=== PATIENT | female | born 1995 | race Caucasian/White ===

== ENCOUNTER 2019-04-08 23:01 | Inpatient (IN) | payer OTHER ==
[2019-04-08] MEDS ORDERED: Sodium Chloride 0.9% 2.5 ML Syringe FLUSH PRN (23:24)
[2019-04-08] MEDS ORDERED: Sodium Chloride 0.9% 10 ML SDV IV PRN (23:24)
[2019-04-08] MEDS ORDERED: Sodium Chloride 0.9% 10 ML Syringe FLUSH PRN (23:24)
[2019-04-08] MEDS ORDERED: Citric Acid/Sodium Citrate Solution 30 ML Cup PO ONE (23:24)
[2019-04-08] MEDS ORDERED: ceFAZolin 2 GM in Premix Bag 1 BAG IV ONE (23:24)
[2019-04-08] MEDS ORDERED: Oxytocin/0.9 % Sodium Chloride 30 UNIT/500 ML BAG IV SCH (23:30)
[2019-04-08] MEDS: Lactated Ringers 1,000 ML IV SCH (23:38)
--- NOTE | 2019-04-09 00:04 | PCM.PREANE ---
Preanesthetic Assessment - Procedure Proposed Procedure: Version possible . - Anesthesia/Transfusion/Family Hx Anesthesia History: Prior Anesthesia Without Reaction Family History of Anesthesia Reaction: No - Review of Systems General: No Symptoms Pulmonary: No Symptoms Cardiovascular: No Symptoms Gastrointestinal: Other (Some nausea at present) Neurological: No Symptoms, Other (Hx Fibro) Other: Reports: None, Depression - Physical Assessment NPO Status Date: 04/09/19 NPO Status Time: 00:05 Height: 1.68 m Weight: 87.997 kg ASA Class: 2E Mental Status: Alert & Oriented x3 Airway Class: Mallampati = 2 Dentition: Reports: Normal Dentition Thyro-Mental Finger Breadths: 3 Mouth Opening Finger Breadths: 3 ROM/Head Extension: Full Lungs: Clear to Auscultation Cardiovascular: Regular Rate - Lab Values: Laboratory Last Values WBC 9.35 K/uL (4.0-11.0) 04/08/19 23:38 RBC 4.40 M/uL (4.30-5.90) 04/08/19 23:38 Hgb 12.5 g/dL (12.0-16.0) 04/08/19 23:38 Hct 37.3 % (36.0-46.0) 04/08/19 23:38 MCV 84.8 fL (80.0-98.0) 04/08/19 23:38 MCH 28.4 pg (27.0-32.0) 04/08/19 23:38 MCHC 33.5 g/dL (31.0-37.0) 04/08/19 23:38 RDW Std Deviation 42.8 fl (28.0-62.0) 04/08/19 23:38 RDW Coeff of Javier 14 % (11.0-15.0) 04/08/19 23:38 Plt Count 219 K/uL (150-400) 04/08/19 23:38 MPV 9.60 fL (7.40-12.00) 04/08/19 23:38 Nucleated RBC % 0.0 /100WBC 04/08/19 23:38 Nucleated RBCs # 0 K/uL 04/08/19 23:38 - Allergies Allergies/Adverse Reactions: Allergies Allergy/AdvReac Type Severity Reaction Status Date / Time No Known Allergies Allergy Verified 04/08/19 23:22 - Blood Blood Available: No - Anesthesia Plan Pre-Op Medication Ordered: None - Acknowledgements Anesthesia Type Planned: Spinal Pt an Appropriate Candidate for the Planned Anesthesia: Yes Alternatives and Risks of Anesthesia Discussed w Pt/Guardian: Yes Pt/Guardian Understands and Agrees with Anesthesia Plan: Yes Additional Comments: Hx noted. Discussed. ? answered. Wishes to proceed. PreAnesthesia Questionnaire Other Gastrointestinal History: H. Pylori - HOME MEDS Home Medications: Home Meds Pnv No.95/Ferrous Fum/Folic AC [ Tablet] 1 tab PO DAILY 04/08/19 [ History] Sertraline [Zoloft] 1 tab PO DAILY 04/08/19 [History] - CURRENT (IN HOUSE) MEDS Current Meds: Current Medications Lactated Ringer's (Ringers, Lactated) 1,000 mls @ 500 mls/hr IV BOLUS VISHAL Oxytocin/Sodium Chloride (Oxytocin 30 Unit/500 Ml-Ns) 30 unit in 500 mls @ 250 mls/hr IV TITRATE VISHAL Sodium Chloride (Saline Flush) 10 ml FLUSH ASDIRECTED PRN PRN Reason: Keep Vein Open Sodium Chloride (Saline Flush) 2.5 ml FLUSH ASDIRECTED PRN PRN Reason: Keep Vein Open Sodium Chloride (Normal Saline) 10 ml IV ASDIRECTED PRN PRN Reason: IV Use Discontinued Medications Citric Acid/Sodium Citrate (Bicitra Solution) 30 ml PO ONETIME ONE Stop: 04/08/19 23:25 Cefazolin Sodium/Dextrose 2 gm (/ Premix) 50 mls @ 100 mls/hr IV ONETIME ONE Stop: 04/08/19 23:53
[2019-04-09] MEDS ORDERED: Ondansetron 4 MG/2 ML SDV ONE (00:13)
[2019-04-09] MEDS ORDERED: ePHEDrine 50 MG/ML SDV ONE ×2 (00:13→00:24)
[2019-04-09] MEDS ORDERED: Sodium Chloride 0.9% 40 ML ONE (00:13)
[2019-04-09] MEDS ORDERED: ceFAZolin 1 GM Vial ONE (00:13)
[2019-04-09] MEDS ORDERED: Phenylephrine/Normal Saline 100 MCG/ML 10 ML Syringe ONE (00:13)
[2019-04-09] MEDS: Lactated Ringers 1,000 ML IV SCH (00:16)
[2019-04-09] MEDS ORDERED: Morphine PF 10 MG/10 ML SDV ONE (00:16)
[2019-04-09] MEDS ORDERED: Oxytocin 10 Units/1 ML SDV ONE (00:44)
[2019-04-09] MEDS ORDERED: fentaNYL 100 MCG/2 ML SDV IVPUSH PRN (01:08)
[2019-04-09] MEDS ORDERED: Nalbuphine 10 MG/1 ML Vial IVPUSH PRN (01:08)
[2019-04-09] MEDS ORDERED: Acetaminophen/HYDROcodone 325-5 MG Tab PO PRN (01:08)
[2019-04-09] MEDS ORDERED: Misoprostol 200 MCG Tab RECTAL PRN (02:10)
[2019-04-09] MEDS ORDERED: diphenhydrAMINE 50 MG/ML SDV IVPUSH PRN (02:10)
[2019-04-09] MEDS ORDERED: Acetaminophen/oxyCODONE 325-5 MG Tab PO PRN (02:10)
[2019-04-09] MEDS ORDERED: Lanolin 100% Cream 7 GM Tube TOP PRN (02:10)
[2019-04-09] MEDS ORDERED: Oxytocin 10 Units/1 ML SDV IM PRN (02:10)
[2019-04-09] MEDS ORDERED: Bisacodyl 10 MG Supp RECTAL PRN (02:10)
[2019-04-09] MEDS ORDERED: Sodium Chloride 0.9% 10 ML Syringe FLUSH PRN (02:10)
[2019-04-09] MEDS ORDERED: Tranexamic Acid 1,000 MG in Sodium Chloride 0.9% 100 ML IV PRN (02:10)
[2019-04-09] MEDS ORDERED: Sodium Chloride 0.9% 2.5 ML Syringe FLUSH PRN (02:10)
[2019-04-09] MEDS ORDERED: Ondansetron 4 MG/2 ML SDV IVPUSH PRN (02:10)
[2019-04-09] MEDS ORDERED: Methylergonovine 0.2 MG/1 ML Amp IM PRN (02:10)
[2019-04-09] MEDS ORDERED: Lactated Ringers 1,000 ML IV SCH (02:15)
--- NOTE | 2019-04-09 02:30 | PCM.POSTAN ---
POST ANESTHESIA ASSESSMENT - MENTAL STATUS Mental Status: Alert - VITAL SIGNS Vital Signs: Last Vital Signs Temp 36.1 C 04/09/19 01:57 Pulse 66 04/09/19 02:20 Resp 8 L 04/09/19 02:20 BP 102/69 04/09/19 02:20 Pulse Ox 98 04/09/19 02:20 - RESPIRATORY Respiratory Status: Respiratory Rate WNL - CARDIOVASCULAR CV Status: Pulse Rate WNL - GASTROINTESTINAL GI Status: No Symptoms Free Text/Narrative:: Nausea from OR resolved. - PAIN Pain Score: 0 (Spinal regressing) - POST OP HYDRATION Hydration Status: Adequate & Stable (Doing well. Will move to phase 2.)
[2019-04-09] MEDS: Ketorolac 30 MG/ML SDV IVPUSH SCH ×4 (02:33→21:15)
--- NOTE | 2019-04-09 05:38 | OR ---
SURGEON: Silvio Cooper MD DATE OF PROCEDURE: 04/09/2019 INDICATION: A 23-year-old, -0-1-1 female, at 37 weeks and 3 days, presenting with spontaneous labor. The patient had regular contractions and progressed from 2cm in the office to 5 cm. Baby was in breech presentation and was scheduled for external cephalic version. She desired a trial of external cephalic version before proceeding with primary section. Complete breech presentation was confirmed by bedside ultrasound. External cephalic version was attempted at bedside and was unsuccessful. heart rate was category 1 tracing. After discussion with the patient, she was agreeable to section. Risks of procedure were discussed with the patient. Questions answered and consent was signed. PREOPERATIVE DIAGNOSES: 1. Wheeler intrauterine at 37 weeks and 1 day. 2. Complete breech presentation. POSTOPERATIVE DIAGNOSES: 1. Wheeler intrauterine at 37 weeks and 1 day. 2. Complete breech presentation. PROCEDURE: Low-transverse section. ESTIMATED BLOOD LOSS: 800 mL. ANESTHESIA: Spinal. ANESTHESIOLOGIST: Ming Patel M.D. FINDINGS: Wheeler intrauterine in complete breech presentation. Viable male fetus. Weight of 7lbs 15oz. of 8 and 9. Normal appearing uterus, bilateral fallopian tubes and ovaries. DESCRIPTION OF PROCEDURE: The patient was brought to the operating room. She received 2 g of Ancef and pneumatic stockings. Spinal anesthesia was applied. Odom was placed. The abdomen was prepped with chlorhexidine in sterile fashion. She was draped and tested for anesthesia, the spinal was adequate. A Pfannenstiel incision was made with a scalpel and dissected down to fascia. Sites of bleeding were cauterized. The fascia was cleared of subcutaneous tissue. The fascia was then incised in the midline and extended laterally with curved Apodaca scissors. Vidal clamps were placed on the superior fascial edge. The rectus muscles were then from the fascia by blunt dissection and using Apodaca scissors. The rectus muscle was inferiorly in similar fashion. The peritoneum was identified and an opening was made bluntly, then stretched. The [place]on retractor was placed in the peritoneal cavity. The bladder was noted to be far away from the site of incision. The uterus was incised transversely at the lower uterine segment using scalpel and extended bluntly. Clear amniotic fluid was noted. The was noted to be in complete breech presentation. The hips were grasped and turned sacrum anterior and delivered through the hysterotomy followed by the legs. The right arm was delivered by rotating the right shoulder anteriorly and sweeping the arm towards the body. The left arm and shoulder were delivered in similar fashion. The head was then delivered with flexion of the chin. The nose and mouth were suctioned. The umbilical cord was clamped and cut after 30 seconds and no longer pulsating. The was pink, crying vigorously and moving all extremities. The infant was handed over to nursery staff and chain maker loom control. The cord gases were obtained. The placenta was delivered manually. The uterus was cleared of any remaining membranes with a clean lap. Allis clamps were used to grasp the angles and lower edges of the incision. The uterine incision was closed using 0 Monocryl in running nonlocking fashion. Small sites of bleeding were noted at the midline. [id number] sutures were placed with 0 Vicryl for hemostasis. The uterus was firm. Paracolic gutters were cleared of any clots. The incision was checked again for hemostasis. Small areas of oozing were cauterized with Bovie. The peritoneum was grasped by Holton clamps and closed using 2-0 Vicryl in running fashion. The rectus muscles were examined and found to be hemostatic. The fascia was closed using 0 Vicryl suture in a running fashion. The subcutaneous tissue was irrigated and bleeding areas cauterized. The subcutaneous layer was closed with running suture of 0 chromic. The skin was closed subcuticularly with 3-0 Monocryl on a Luis needle. Telfa and ABD dressings were placed over the incision. The patient was stable and transferred to recovery room. She was given postoperative care instructions. PACO MUNGUIA /[id number] FRANCISCO JAVIER
[2019-04-09] MEDS: Docusate Sodium 100 MG Cap PO SCH ×2 (08:29→21:15)
--- NOTE | 2019-04-09 11:37 | PCM48HPAN ---
Post Anesthesia Note - EVALUATION WITHIN 48HRS OF ANESTHETIC Vital Signs in Normal Range: Yes Patient Participated in Evaluation: Yes Respiratory Function Stable: Yes Airway Patent: Yes Cardiovascular Function Stable: Yes Hydration Status Stable: Yes Pain Control Satisfactory: Yes (Very comfortable. ) Nausea and Vomiting Control Satisfactory: Yes Mental Status Recovered: Yes Vital Signs: Last Vital Signs Temp 36.1 C 04/09/19 07:23 Pulse 78 04/09/19 07:23 Resp 18 04/09/19 07:23 BP 119/69 04/09/19 07:23 Pulse Ox 98 04/09/19 07:23 - COMMENTS/OBSERVATIONS Free Text/Narrative:: Doing well. No problems noted at present. Progressing well.
[2019-04-10] MEDS: Ketorolac 30 MG/ML SDV IVPUSH SCH (03:17)
[2019-04-10] MEDS ORDERED: Ibuprofen 800 MG Tab PO PRN (08:00)
[2019-04-10] MEDS: Docusate Sodium 100 MG Cap PO SCH ×2 (08:47→21:19)
[2019-04-10] MEDS ORDERED: Acetaminophen 325 MG Tab PO PRN (12:10)
--- NOTE | 2019-04-10 12:20 | PCM.PNPP ---
- General Info Date of Service: 04/10/19 Functional Status: Reports: Pain Controlled, Tolerating Diet, Ambulating, Urinating, Other (Passing flatus. Bleeding minimal.) - Review of Systems General: Reports: No Symptoms HEENT: Reports: No Symptoms Pulmonary: Reports: No Symptoms Cardiovascular: Reports: No Symptoms Gastrointestinal: Reports: No Symptoms Genitourinary: Reports: No Symptoms Musculoskeletal: Reports: No Symptoms Skin: Reports: No Symptoms Neurological: Reports: No Symptoms Psychiatric: Reports: No Symptoms - Patient Data Vital Signs - Most Recent: Last Vital Signs Temp 36.4 C 04/10/19 07:56 Pulse 77 04/10/19 07:56 Resp 16 04/10/19 07:56 BP 104/55 L 04/10/19 07:56 Pulse Ox 97 04/10/19 07:56 Weight - Most Recent: 194 lb I&O - Last 24 Hours: Intake & Output 04/09/19 04/10/19 04/10/19 22:59 06:59 14:59 Intake Total 1360 900 450 Output Total 1150 1000 900 Balance 210 -100 -450 Lab Results - Last 24 Hours: Laboratory Results - last 24 hr 04/10/19 Range/Units 05:55 Hgb 10.5 L (12.0-16.0) g/dL Hct 33.0 L (36.0-46.0) % Med Orders - Current: Current Medications Acetaminophen (Tylenol) 650 mg PO Q6H PRN PRN Reason: Pain (moderate 4-6) Hydrocodone Bitart/Acetaminophen ([place] 325-5 Mg) 1 tab PO Q4H PRN PRN Reason: Pain (moderate 4-6) Bisacodyl (Dulcolax) 10 mg RECTAL ONETIME PRN PRN Reason: Constipation Diphenhydramine HCl (Benadryl) 25 mg IVPUSH Q6H PRN PRN Reason: Itching or Nausea Docusate Sodium (Colace) 100 mg PO BID [facility] Last Admin: 04/10/19 08:47 Dose: 100 mg Emollient Ointment (Lansinoh Hpa) 0 gm TOP ASDIRECTED PRN PRN Reason: Sore Nipples Lactated Ringer's (Ringers, Lactated) 1,000 mls @ 500 mls/hr IV BOLUS [facility] Last Admin: 01/04/20 00:16 Dose: 999 mls/hr Oxytocin/Sodium Chloride (Oxytocin 30 Unit/500 Ml-Ns) 30 unit in 500 mls @ 250 mls/hr IV TITRATE [facility] Tranexamic Acid 1,000 mg/ (Sodium Chloride) 110 mls @ 660 mls/hr IV ONETIME PRN PRN Reason: Bleeding Lactated Ringer's (Ringers, Lactated) 1,000 mls @ 125 mls/hr IV ASDIRECTED [facility] Last Admin: 04/09/19 04:44 Dose: 125 mls/hr Ibuprofen (Motrin) 800 mg PO Q8H PRN PRN Reason: mild pain or fever Methylergonovine Maleate (Methergine) 0.2 mg IM ONETIME PRN PRN Reason: Excessive Vaginal Bleeding Misoprostol (Cytotec) 1,000 mcg RECTAL ONETIME PRN PRN Reason: excessive bleeding Ondansetron HCl (Zofran) 4 mg IVPUSH Q4H PRN PRN Reason: Nausea/Vomiting Oxycodone/Acetaminophen (Percocet 325-5 Mg) 1 tab PO Q4H PRN PRN Reason: Pain (moderate 4-6) Oxycodone/Acetaminophen (Percocet 325-5 Mg) 2 tab PO Q4H PRN PRN Reason: Pain (moderate 4-6) Oxytocin (Pitocin) 10 unit IM ASDIRECTED PRN PRN Reason: Excessive Vaginal Bleeding Sodium Chloride (Saline Flush) 10 ml FLUSH ASDIRECTED PRN PRN Reason: Keep Vein Open Sodium Chloride (Saline Flush) 2.5 ml FLUSH ASDIRECTED PRN PRN Reason: Keep Vein Open Sodium Chloride (Normal Saline) 10 ml IV ASDIRECTED PRN PRN Reason: IV Use Sodium Chloride (Saline Flush) 10 ml FLUSH ASDIRECTED PRN PRN Reason: Keep Vein Open Sodium Chloride (Saline Flush) 2.5 ml FLUSH ASDIRECTED PRN PRN Reason: Keep Vein Open Discontinued Medications Cefazolin Sodium (Ancef) Confirm Administered Dose 2 gm .ROUTE .STK-MED ONE Stop: 04/09/19 00:14 Citric Acid/Sodium Citrate (Bicitra Solution) 30 ml PO ONETIME ONE Stop: 04/08/19 23:25 Last Admin: 04/09/19 02:28 Dose: Not Given Ephedrine Sulfate (Ephedrine Sulfate) Confirm Administered Dose 50 mg .ROUTE .STK-MED ONE Stop: 04/09/19 00:14 Ephedrine Sulfate (Ephedrine Sulfate) Confirm Administered Dose 350 mg .ROUTE .STK-MED ONE Stop: 04/09/19 00:25 Fentanyl (Sublimaze) 50 mcg IVPUSH Q5M PRN PRN Reason: Pain (severe 7-10) Stop: 04/10/19 01:08 Cefazolin Sodium/Dextrose 2 gm (/ Premix) 50 mls @ 100 mls/hr IV ONETIME ONE Stop: 04/08/19 23:53 Last Admin: 04/09/19 02:29 Dose: Not Given Sodium Chloride (Normal Saline) Confirm Administered Dose 40 mls @ as directed .ROUTE .STK-MED ONE Stop: 04/09/19 00:14 Acetaminophen (Ofirmev) Confirm Administered Dose 100 mls @ as directed .ROUTE .STK-MED ONE Stop: 04/09/19 00:20 Last Admin: 04/10/19 09:35 Dose: Not Given Ketorolac Tromethamine (Toradol) 30 mg IVPUSH Q6H VISHAL Stop: 04/10/19 02:01 Last Admin: 04/10/19 03:17 Dose: 30 mg Morphine Sulfate (Duramorph Pf) Confirm Administered Dose 10 mg .ROUTE .STK-MED ONE Stop: 04/09/19 00:17 Nalbuphine HCl (Nubain) 2.5 mg IVPUSH Q3H PRN PRN Reason: Pruritis Stop: 04/10/19 01:09 Ondansetron HCl (Zofran) Confirm Administered Dose 4 mg .ROUTE .STK-MED ONE Stop: 04/09/19 00:14 Oxytocin (Pitocin) Confirm Administered Dose 20 unit .ROUTE .STK-MED ONE Stop: 04/09/19 00:45 Phenylephrine HCl (Phenylephrine In Ns 100 Mcg/Ml) Confirm Administered Dose 1 mg .ROUTE .STK-MED ONE Stop: 04/09/19 00:14 - Interaction Infant Disposition, : [place] at Bedside Infant Interaction: Holding Infant Feeding: Breastfed Infant; Nursed Well Support Person: - Recovery Exam Fundal Tone: Firm Fundal Level: 2 Fingerbreadths Below Umbilicus Fundal Placement: Midline Lochia Amount: Scant Lochia Color: Rubra/Red Episiotomy/Laceration: None Bladder Status: Voiding Urinary Elimination: Voided - Exam General: Alert, Oriented, Cooperative, No Acute Distress HEENT: Pupils Equal, Pupils Reactive Neck: Supple, Trachea Midline Lungs: Normal Respiratory Effort GI/Abdominal Exam: Soft, Non-Tender, No Distention Extremities: Normal Inspection, Normal Range of Motion, Non-Tender, No Pedal Edema Skin: Warm, Dry, Intact Wound/Incisions: Healing Well Neurological: No New Focal Deficit Psy/Mental Status: Alert, Normal Affect, Normal Mood - Problem List Review Problem List Initiated/Reviewed/Updated: Yes - My Orders Last 24 Hours: My Active Orders 04/10/19 08:00 Ibuprofen [Motrin] 800 mg PO Q8H PRN 04/10/19 12:10 Acetaminophen [Tylenol] 650 mg PO Q6H PRN - Assessment Assessment:: 23yo POD1 s/p LTCS for labor with breech presentation. Stable and recovering well. - Plan Plan:: Vitals stable Hgb 10.5, minimal bleeding. Denies s/s of anemia, advised to continue PNV. Tolerating PO, passing flatus, continue stool softeners Baby doing well, no longer requiring O2 Anticipate discharge home tomorrow
[2019-04-10] MEDS ORDERED: Acetaminophen 500 MG Tab PO PRN (13:31)
[2019-04-10] MEDS: Acetaminophen/oxyCODONE 325-5 MG Tab PO PRN (23:56)
[2019-04-11] MEDS: Acetaminophen/oxyCODONE 325-5 MG Tab PO PRN ×2 (06:27→10:46)
[2019-04-11 08:21] VITALS: BP 116/64; PULSE 78
--- NOTE | 2019-04-11 10:29 | PCM.PNPP ---
- General Info Date of Service: 04/11/19 Functional Status: Reports: Pain Controlled, Tolerating Diet, Ambulating, Urinating - Review of Systems General: Denies: Fever, Weakness, Fatigue Pulmonary: Denies: Shortness of Breath Cardiovascular: Denies: Chest Pain, Palpitations, Lightheadedness Gastrointestinal: Denies: Abdominal Pain, Nausea, Vomiting Genitourinary: Denies: Flank Pain Musculoskeletal: Reports: No Symptoms Skin: Reports: No Symptoms Neurological: Reports: No Symptoms Psychiatric: Reports: No Symptoms - General Info Date of Service: 04/11/19 - Patient Data Vital Signs - Most Recent: Last Vital Signs Temp 36.5 C 04/11/19 08:00 Pulse 78 04/11/19 08:00 Resp 18 04/11/19 08:00 BP 116/64 04/11/19 08:00 Pulse Ox 97 04/11/19 08:00 Weight - Most Recent: 87.997 kg I&O - Last 24 Hours: Intake & Output 04/10/19 04/11/19 04/11/19 22:59 06:59 14:59 Intake Total 570 Output Total 800 Balance -230 Med Orders - Current: Current Medications Acetaminophen (Tylenol) 650 mg PO Q6H PRN PRN Reason: Pain (moderate 4-6) Last Admin: 04/10/19 13:44 Dose: 650 mg Hydrocodone Bitart/Acetaminophen ([place] 325-5 Mg) 1 tab PO Q4H PRN PRN Reason: Pain (moderate 4-6) Bisacodyl (Dulcolax) 10 mg RECTAL ONETIME PRN PRN Reason: Constipation Diphenhydramine HCl (Benadryl) 25 mg IVPUSH Q6H PRN PRN Reason: Itching or Nausea Docusate Sodium (Colace) 100 mg PO BID [facility] Last Admin: 04/10/19 21:19 Dose: 100 mg Emollient Ointment (Lansinoh Hpa) 0 gm TOP ASDIRECTED PRN PRN Reason: Sore Nipples Lactated Ringer's (Ringers, Lactated) 1,000 mls @ 500 mls/hr IV BOLUS [facility] Last Admin: 04/09/19 00:16 Dose: 999 mls/hr Oxytocin/Sodium Chloride (Oxytocin 30 Unit/500 Ml-Ns) 30 unit in 500 mls @ 250 mls/hr IV TITRATE [facility] Tranexamic Acid 1,000 mg/ (Sodium Chloride) 110 mls @ 660 mls/hr IV ONETIME PRN PRN Reason: Bleeding Lactated Ringer's (Ringers, Lactated) 1,000 mls @ 125 mls/hr IV ASDIRECTED [facility] Last Admin: 04/09/19 04:44 Dose: 125 mls/hr Ibuprofen (Motrin) 800 mg PO Q8H PRN PRN Reason: mild pain or fever Last Admin: 04/10/19 12:21 Dose: 800 mg Methylergonovine Maleate (Methergine) 0.2 mg IM ONETIME PRN PRN Reason: Excessive Vaginal Bleeding Misoprostol (Cytotec) 1,000 mcg RECTAL ONETIME PRN PRN Reason: excessive bleeding Ondansetron HCl (Zofran) 4 mg IVPUSH Q4H PRN PRN Reason: Nausea/Vomiting Oxycodone/Acetaminophen (Percocet 325-5 Mg) 1 tab PO Q4H PRN PRN Reason: Pain (moderate 4-6) Last Admin: 04/10/19 18:57 Dose: 1 tab Oxycodone/Acetaminophen (Percocet 325-5 Mg) 2 tab PO Q4H PRN PRN Reason: Pain (moderate 4-6) Last Admin: 04/11/19 06:27 Dose: 2 tab Oxytocin (Pitocin) 10 unit IM ASDIRECTED PRN PRN Reason: Excessive Vaginal Bleeding Sodium Chloride (Saline Flush) 10 ml FLUSH ASDIRECTED PRN PRN Reason: Keep Vein Open Sodium Chloride (Saline Flush) 2.5 ml FLUSH ASDIRECTED PRN PRN Reason: Keep Vein Open Sodium Chloride (Normal Saline) 10 ml IV ASDIRECTED PRN PRN Reason: IV Use Sodium Chloride (Saline Flush) 10 ml FLUSH ASDIRECTED PRN PRN Reason: Keep Vein Open Sodium Chloride (Saline Flush) 2.5 ml FLUSH ASDIRECTED PRN PRN Reason: Keep Vein Open Discontinued Medications Acetaminophen (Tylenol Extra Strength) 1,000 mg PO Q4H PRN PRN Reason: Pain/Fever Cefazolin Sodium (Ancef) Confirm Administered Dose 2 gm .ROUTE .STK-MED ONE Stop: 04/09/19 00:14 Citric Acid/Sodium Citrate (Bicitra Solution) 30 ml PO ONETIME ONE Stop: 04/08/19 23:25 Last Admin: 04/09/19 02:28 Dose: Not Given Ephedrine Sulfate (Ephedrine Sulfate) Confirm Administered Dose 50 mg .ROUTE .STK-MED ONE Stop: 04/09/19 00:14 Ephedrine Sulfate (Ephedrine Sulfate) Confirm Administered Dose 350 mg .ROUTE .STK-MED ONE Stop: 04/09/19 00:25 Fentanyl (Sublimaze) 50 mcg IVPUSH Q5M PRN PRN Reason: Pain (severe 7-10) Stop: 04/10/19 01:08 Cefazolin Sodium/Dextrose 2 gm (/ Premix) 50 mls @ 100 mls/hr IV ONETIME ONE Stop: 04/08/19 23:53 Last Admin: 04/09/19 02:29 Dose: Not Given Sodium Chloride (Normal Saline) Confirm Administered Dose 40 mls @ as directed .ROUTE .STK-MED ONE Stop: 04/09/19 00:14 Acetaminophen (Ofirmev) Confirm Administered Dose 100 mls @ as directed .ROUTE .STK-MED ONE Stop: 04/09/19 00:20 Last Admin: 04/10/19 09:35 Dose: Not Given Ketorolac Tromethamine (Toradol) 30 mg IVPUSH Q6H VISHAL Stop: 04/10/19 02:01 Last Admin: 04/10/19 03:17 Dose: 30 mg Morphine Sulfate (Duramorph Pf) Confirm Administered Dose 10 mg .ROUTE .STK-MED ONE Stop: 04/09/19 00:17 Nalbuphine HCl (Nubain) 2.5 mg IVPUSH Q3H PRN PRN Reason: Pruritis Stop: 04/10/19 01:09 Ondansetron HCl (Zofran) Confirm Administered Dose 4 mg .ROUTE .STK-MED ONE Stop: 04/09/19 00:14 Oxytocin (Pitocin) Confirm Administered Dose 20 unit .ROUTE .STK-MED ONE Stop: 04/09/19 00:45 Phenylephrine HCl (Phenylephrine In Ns 100 Mcg/Ml) Confirm Administered Dose 1 mg .ROUTE .STK-MED ONE Stop: 04/09/19 00:14 - Interaction Infant Disposition, : [place] at Bedside Interaction: Holding Infant Feeding: Breastfed ; Nursed Well Support Person: - Recovery Exam Fundal Tone: Firm Fundal Level: 2 Fingerbreadths Below Umbilicus Fundal Placement: Midline Lochia Amount: Scant Lochia Color: Rubra/Red Perineum Description: Intact, Minimal Bruising/Swelling Episiotomy/Laceration: None Bladder Status: Voiding Urinary Elimination: Voided - Exam General: Alert, Oriented Lungs: Normal Respiratory Effort Cardiovascular: Regular Rate, Regular Rhythm GI/Abdominal Exam: Normal Bowel Sounds, Soft Extremities: Pedal Edema (trace). No: Fuad's Sign Skin: Warm, Dry, Intact Wound/Incisions: Healing Well, No Drainage. No: Erythema Neurological: No New Focal Deficit Psy/Mental Status: Alert, Normal Affect, Normal Mood - Problem List & Annotations (1) Delivery by section SNOMED Code(s): 024827437 Code(s): BWT5561 - Status: Acute Current Visit: Yes - Problem List Review Problem List Initiated/Reviewed/Updated: Yes - My Orders Last 24 Hours: My Active Orders 04/11/19 10:26 Ready for Discharge [RC] PER UNIT ROUTINE - Assessment Assessment:: 23yo POD2 s/p LTCS for labor with breech presentation. Stable and recovering well. - Plan Plan:: Doing well overall, VS are stable. is well. Would like to go home. Discharge instructions reviewed. Follow up at [facility] 2 and 6 weeks. Continue PNV daily. Infection and bleeding warnings reviewed. Discharge to home.
[2019-04-11] MEDS: Docusate Sodium 100 MG Cap PO SCH (10:47)
== END 2019-04-11 13:10 | disposition home or self-care (01) | DRG 788 ==
LOC: MW.OBCHECK 23:01 → MW.OB 23:02 → OBSVTOIN 23:24 → MW.OB 23:24 → MW.OBCHECK 23:24 → MW.OB 04-09 03:00
PROVIDERS: ADMIT Obstetrics & Gynecology; ATTEND Obstetrics & Gynecology
PROC: 10D00Z1 Extraction of Products of Conception, Low, Open Approach (ICD-10-PCS; principal; 2019-04-08)
DX: O32.1XX0 Maternal care for breech presentation, not applicable or unspecified (principal); Z3A.39 39 weeks gestation of pregnancy; Z37.0 Single live birth
CPT/HCPCS: 36415; 59025; 85014; 85018; 85027; 86593; 86850; 86900; 86901; A9270-GY; J0131; J0690; J1885; J2270; J2370; J2405; J2590; J7120

== ENCOUNTER 2020-07-18 23:28 | Emergency (ER) | payer OTHER ==
--- NOTE | 2020-07-19 00:23 | EDM.PDOC ---
ED HPI GENERAL MEDICAL PROBLEM - General Chief Complaint: Behavioral/Psych Stated Complaint: SUICIDAL THOUGHTS Time Seen by Provider: 07/19/20 00:09 - History of Present Illness INITIAL COMMENTS - FREE TEXT/NARRATIVE: HISTORY AND PHYSICAL: History of present illness: This is a 24-year-old female with a history significant for depression and anxiety who presents ER today secondary to having suicidal thoughts that started today. Patient reports that she had mentioned it to her that she was having thoughts about overdosing on her lithium, her then called her mother who brought her into the ED for further evaluation of her SI. Patient denies any history of hypertension, diabetes, liver, lung, kidney problems. Patient reports that she has had a recent . Patient has no known drug allergies. Patient denies a tobacco alcohol or drugs. Patient reports that she does use occasional alcohol and last drink was approximately 5 days ago. Patient reports that she takes lithium for her depression. Patient reports no prior SI or suicide attempts in the past. Patient denies any attempt/overdose however she does have thoughts about overdosing. Patient reports she is unclear as to why she is having SI thoughts and has no specific stressor that she is able to express. Patient denies any recent fevers, shakes, chills, nausea, vomiting, diarrhea, dysuria, frequency, urgency, chest pain, shortness of breath, abdominal pain. Patient reports that she was in her usual state of health. Review of systems: As per history of present illness and below otherwise all systems reviewed and negative. Past medical history: As per history of present illness and as reviewed below otherwise noncontributory. Surgical history: As per history of present illness and as reviewed below otherwise noncont ributory. Social history: No reported history of drug or alcohol abuse. Family history: As per history of present illness and as reviewed below otherwise noncontributory. Physical exam: This patient was seen and evaluated during the 2019 SARS-CoV-2 novel coronavirus pandemic period. Community viral transmission is ongoing at time of this encounter and the emergency department is operating under pandemic response procedures. Constitutional: Patient is oriented to person, place, and time. Appears well- developed and well-nourished. No distress. HEENT: Moist mucous membranes Head: Normocephalic and atraumatic Eyes: Right eye exhibits no discharge. Left eye exhibits no discharge. No scleral icterus Neck: Normal range of motion. No tracheal deviation present. Cardiovascular: Normal rate and regular rhythm. Pulmonary: Effort normal, no respiratory distress. Abdominal: No distention Musculoskeletal: Normal range of motion Neurologic: Alert and oriented to person, place and time. Skin: [place], warm and dry. Psychiatric: Depressed affect with positive SI. Patient denies HI. Behavior is normal. Judgment and thought content normal. Nursing note and vital signs have been reviewed Diagnostics: Mental health panel Therapeutics: Suicide precautions Assessment and plan: This is a 24-year-old female with a history of depression and anxiety who presents ER today secondary to new onset suicidal ideation and plan to overdose on her lithium tablets. Patient has not overdosed on any medications nor has she had any episodes in the past of suicidal ideation or attempt. In the ED, patient will be medically cleared and I have discussed with her the need to transfer to a psychiatric facility for inpatient evaluation. Patient is extremely amenable to this plan at this time. Patient's labs were within normal limits. Patient's Covid test is negative. EKG: As interpreted by ER physician: Ivon: Nonspecific ST-T wave abnormalities Normal axis No evidence of ST elevation [place] Normal sinus rhythm heart rate of 61 Case discussed with [facility], no beds available Case discussed with [facility], Dr. Matamoros has agreed to accept patient for transfer. Definitive disposition and diagnosis as appropriate pending reevaluation and review of above. - Related Data Allergies Allergy/AdvReac Type Severity Reaction Status Date / Time No Known Allergies Allergy Verified 07/18/20 23:49 Home Meds: Home Meds FLUoxetine HCl [Fluoxetine] 40 mg PO DAILY 07/18/20 [History] [place] Carbonate 300 mg PO DAILY 07/18/20 [History] QUEtiapine [SEROquel] 50 mg PO DAILY 07/18/20 [History] Topiramate 25 mg PO DAILY 07/18/20 [History] Past Medical History HEENT History: Reports: Impaired Vision Cardiovascular History: Reports: None Respiratory History: Reports: None Other Gastrointestinal History: H. Pylori Genitourinary History: Reports: None SPIRAL TUBE WINDER History: Reports: , Spontaneous Musculoskeletal History: Reports: None Neurological History: Reports: None Psychiatric History: Reports: Anxiety, Depression, Suicidal Ideation Endocrine/Metabolic History: Reports: None Insulin Pump Model and Logistics Technician: None Hematologic History: Reports: None Immunologic History: Reports: None Oncologic (Cancer) History: Reports: None Dermatologic History: Reports: None - Infectious Disease History Infectious Disease History: Reports: None - Past Surgical History Head Surgeries/Procedures: Reports: None HEENT Surgical History: Reports: Oral Surgery, Other (See Below) GI Surgical History: Reports: None Social & Family History - Family History OBGYN: Reports: Psychiatric: Reports: Other (See Below) Other Psychiatric Family History: alcoholism - Caffeine Use Caffeine Use: Reports: Soda - Recreational Drug Use Recreational Drug Use: No ED ROS GENERAL - Review of Systems Review Of Systems: See Below ED EXAM, GENERAL - Physical Exam Exam: See Below Course - Vital Signs Last Recorded V/S: Last Vital Signs Temp 98.1 F 07/18/20 23:35 Pulse 60 07/19/20 01:45 Resp 18 07/19/20 01:45 BP 117/66 07/19/20 01:45 Pulse Ox 97 07/19/20 01:45 - Orders/Labs/Meds Orders: Active Orders 24 hr Category Date Time Status Communication Order [RC] STAT Care 07/18/20 23:58 Active EKG Documentation Completion [RC] STAT Care 07/18/20 23:39 Active LITHIUM [REF] Stat Lab 07/19/20 00:05 Received Labs: Laboratory Tests 07/18/20 07/18/20 07/18/20 Range/Units 23:45 23:45 23:45 WBC (4.0-11.0) K/uL RBC (4.30-5.90) M/uL Hgb (12.0-16.0) g/dL Hct (36.0-46.0) % MCV (80.0-98.0) fL MCH (27.0-32.0) pg MCHC (31.0-37.0) g/dL RDW Std Deviation (28.0-62.0) fl RDW Coeff of Javier (11.0-15.0) % Plt Count (150-400) K/uL MPV (7.40-12.00) fL Neut % (Auto) (48.0-80.0) % Lymph % (Auto) (16.0-40.0) % [place] % (Auto) (0.0-15.0) % Eos % (Auto) (0.0-7.0) % Baso % (Auto) (0.0-1.5) % Neut # (Auto) (1.4-5.7) K/uL Lymph # (Auto) (0.6-2.4) K/uL [place] # (Auto) (0.0-0.8) K/uL Eos # (Auto) (0.0-0.7) K/uL Baso # (Auto) (0.0-0.1) K/uL Nucleated RBC % /100WBC Nucleated RBCs # K/uL Sodium (136-145) mmol/L Potassium (3.5-5.1) mmol/L Chloride (98-107) mmol/L Carbon Dioxide (21.0-32.0) mmol/L BUN (7.0-18.0) mg/dL Creatinine (0.6-1.0) mg/dL Est Cr Clr Drug Dosing mL/min Estimated GFR (MDRD) ml/min Glucose (74-106) mg/dL Calcium (8.5-10.1) mg/dL Magnesium (1.8-2.4) mg/dL Total Bilirubin (0.2-1.0) mg/dL AST (15-37) IU/L ALT (14-63) IU/L Alkaline Phosphatase (46-116) U/L Total Protein (6.4-8.2) g/dL Albumin (3.4-5.0) g/dL Globulin (2.6-4.0) g/dL Albumin/Globulin Ratio (0.9-1.6) TSH 3rd Generation (0.36-3.74) uIU/mL Urine Color YELLOW Urine Appearance SLT CLOUDY Urine pH 6.5 (5.0-8.0) Ur Specific [place] 1.015 (1.001-1.035) Urine Protein NEGATIVE (NEGATIVE) mg/dL Urine Glucose (UA) NEGATIVE (NEGATIVE) mg/dL Urine Ketones NEGATIVE (NEGATIVE) mg/dL Urine Occult Blood NEGATIVE (NEGATIVE) Urine Nitrite NEGATIVE (NEGATIVE) Urine Bilirubin NEGATIVE (NEGATIVE) Urine Urobilinogen 0.2 (<2.0) EU/dL Ur Leukocyte Esterase SMALL H (NEGATIVE) Urine RBC 0-2 (0-2/HPF) Urine WBC 2-4 (0-5/HPF) Ur Epithelial Cells MODERATE (NONE-FEW) Amorphous Sediment LIGHT (NEGATIVE) Urine Bacteria 2+ H (NEGATIVE) Urine Mucus MODERATE (NONE-MOD) Urine HCG, Qual NEGATIVE (NEGATIVE) Salicylates (0-20) mg/dL Urine Opiates Screen NEGATIVE (NEGATIVE) Ur Oxycodone Screen NEGATIVE (NEGATIVE) Urine Methadone Screen NEGATIVE (NEGATIVE) Acetaminophen ug/mL Ur Barbiturates Screen NEGATIVE (NEGATIVE) Ur Phencyclidine Scrn NEGATIVE (NEGATIVE) Ur Amphetamine Screen NEGATIVE (NEGATIVE) U Methamphetamines Scrn NEGATIVE (NEGATIVE) U Benzodiazepines Scrn NEGATIVE (NEGATIVE) U Cocaine Metab Screen NEGATIVE (NEGATIVE) U Marijuana (THC) Screen NEGATIVE (NEGATIVE) Ethyl Alcohol mg/dL SARS-CoV-2 RNA (AIMEE) (NEGATIVE) 07/19/20 07/19/20 07/19/20 Range/Units 00:05 00:05 01:02 WBC 7.60 (4.0-11.0) K/uL RBC 4.08 L (4.30-5.90) M/uL Hgb 11.7 L (12.0-16.0) g/dL Hct 35.5 L (36.0-46.0) % MCV 87.0 (80.0-98.0) fL MCH 28.7 (27.0-32.0) pg MCHC 33.0 (31.0-37.0) g/dL RDW Std Deviation 41.0 (28.0-62.0) fl RDW Coeff of Javier 13 (11.0-15.0) % Plt Count 319 (150-400) K/uL MPV 9.00 (7.40-12.00) fL Neut % (Auto) 57.3 (48.0-80.0) % Lymph % (Auto) 33.9 (16.0-40.0) % [place] % (Auto) 7.1 (0.0-15.0) % Eos % (Auto) 1.6 (0.0-7.0) % Baso % (Auto) 0.1 (0.0-1.5) % Neut # (Auto) 4.4 (1.4-5.7) K/uL Lymph # (Auto) 2.6 H (0.6-2.4) K/uL [place] # (Auto) 0.5 (0.0-0.8) K/uL Eos # (Auto) 0.1 (0.0-0.7) K/uL Baso # (Auto) 0.0 (0.0-0.1) K/uL Nucleated RBC % 0.0 /100WBC Nucleated RBCs # 0 K/uL Sodium 140 (136-145) mmol/L Potassium 3.5 (3.5-5.1) mmol/L Chloride 104 (98-107) mmol/L Carbon Dioxide 27.3 (21.0-32.0) mmol/L BUN 15 (7.0-18.0) mg/dL Creatinine 1.1 H (0.6-1.0) mg/dL Est Cr Clr Drug Dosing 73.83 mL/min Estimated GFR (MDRD) > 60.0 ml/min Glucose 113 H (74-106) mg/dL Calcium 8.9 (8.5-10.1) mg/dL Magnesium 2.3 (1.8-2.4) mg/dL Total Bilirubin 0.3 (0.2-1.0) mg/dL AST 16 (15-37) IU/L ALT 24 (14-63) IU/L Alkaline Phosphatase 114 (46-116) U/L Total Protein 7.5 (6.4-8.2) g/dL Albumin 3.7 (3.4-5.0) g/dL Globulin 3.8 (2.6-4.0) g/dL Albumin/Globulin Ratio 1.0 (0.9-1.6) TSH 3rd Generation 3.15 (0.36-3.74) uIU/mL Urine Color Urine Appearance Urine pH (5.0-8.0) Ur Specific [place] (1.001-1.035) Urine Protein (NEGATIVE) mg/dL Urine Glucose (UA) (NEGATIVE) mg/dL Urine Ketones (NEGATIVE) mg/dL Urine Occult Blood (NEGATIVE) Urine Nitrite (NEGATIVE) Urine Bilirubin (NEGATIVE) Urine Urobilinogen (<2.0) EU/dL Ur Leukocyte Esterase (NEGATIVE) Urine RBC (0-2/HPF) Urine WBC (0-5/HPF) Ur Epithelial Cells (NONE-FEW) Amorphous Sediment (NEGATIVE) Urine Bacteria (NEGATIVE) Urine Mucus (NONE-MOD) Urine HCG, Qual (NEGATIVE) Salicylates 1.2 (0-20) mg/dL Urine Opiates Screen (NEGATIVE) Ur Oxycodone Screen (NEGATIVE) Urine Methadone Screen (NEGATIVE) Acetaminophen <2.0 ug/mL Ur Barbiturates Screen (NEGATIVE) Ur Phencyclidine Scrn (NEGATIVE) Ur Amphetamine Screen (NEGATIVE) U Methamphetamines Scrn (NEGATIVE) U Benzodiazepines Scrn (NEGATIVE) U Cocaine Metab Screen (NEGATIVE) U Marijuana (THC) Screen (NEGATIVE) Ethyl Alcohol 3 mg/dL SARS-CoV-2 RNA (AIMEE) NEGATIVE (NEGATIVE) Departure - Departure Time of Disposition: 02:04 Disposition: DC/Tfer to Psych Hosp/Unit 65 Condition: Good Clinical Impression: Depressive disorder, Suicidal ideation - Discharge Information Referrals: PCP,None [Primary Care Provider] - Forms: ED Department Discharge Sepsis Event Note (ED) - Evaluation Sepsis Screening Result: No Definite Risk - Focused Exam Vital Signs: Vital Signs Temp Pulse Resp BP Pulse Ox 07/19/20 01:45 60 18 117/66 97 07/19/20 01:09 62 18 112/71 99 07/19/20 00:16 73 18 118/85 97 07/18/20 23:35 98.1 F 66 18 121/76 98 - My Orders Last 24 Hours: My Active Orders 07/18/20 23:39 EKG Documentation Completion [RC] STAT 07/18/20 23:58 Communication Order [RC] STAT 07/19/20 00:05 LITHIUM [REF] Stat - Assessment/Plan Last 24 Hours: My Active Orders 07/18/20 23:39 EKG Documentation Completion [RC] STAT 07/18/20 23:58 Communication Order [RC] STAT 07/19/20 00:05 LITHIUM [REF] Stat
[2020-07-19 00:49] LABS: ACETAMINOPHEN <2.0 ug/mL; BLOOD UREA NITROGEN,BUN 15 mg/dL (7.0-18.0); CARBON DIOXIDE,CO2 27.3 mmol/L (21.0-32.0); CHLORIDE,CL 104 mmol/L (98-107); GLUCOSE RANDOM 113 mg/dL (74-106); POTASSIUM,K 3.5 mmol/L (3.5-5.1); SODIUM,NA 140 mmol/L (136-145)
[2020-07-19 02:16] VITALS: BP 97/45; PULSE 67
[2020-07-19] MEDS ORDERED: Acetaminophen 500 MG Tab ONE (02:44)
[2020-07-19] MEDS ORDERED: Acetaminophen 500 MG Tab PO STA (02:46)
== END 2020-07-19 02:45 ==
LOC: MW.ED 23:28
DX: F32.9 Major depressive disorder, single episode, unspecified (principal); Z20.822 Contact with and (suspected) exposure to COVID-19; Z79.899 Other long term (current) drug therapy
CPT/HCPCS: 36415; 80053; 80143; 80178; 80179; 80305; 80307; 81001; 81025; 83735; 84443; 85025; 87635; 93005; 99285; A9270; 93010; 99284; U0002

== ENCOUNTER 2021-07-10 12:10 | Emergency (ER) | payer OTHER ==
[2021-07-10 13:27] LABS: BLOOD UREA NITROGEN,BUN 11 mg/dL (7.0-18.0); CARBON DIOXIDE,CO2 27.3 mmol/L (21.0-32.0); CHLORIDE,CL 103 mmol/L (98-107); GLUCOSE RANDOM 61 mg/dL (74-106); POTASSIUM,K 3.5 mmol/L (3.5-5.1); SODIUM,NA 138 mmol/L (136-145)
[2021-07-10 14:23] VITALS: BP 111/57; PULSE 79
== END 2021-07-10 14:30 | disposition home or self-care (01) ==
LOC: MW.ED 12:10
DX: K62.5 Hemorrhage of anus and rectum (principal); E16.2 Hypoglycemia, unspecified
CPT/HCPCS: 36415; 80048; 82947; 85025; 99283

== ENCOUNTER 2021-11-30 15:09 | Emergency (ER) | payer OTHER ==
[2021-11-30] MEDS ORDERED: Sodium Chloride 0.9% 1,000 ML IV ONE (16:32)
[2021-11-30] MEDS ORDERED: Sodium Chloride 0.9% 10 ML Syringe FLUSH PRN (16:32)
[2021-11-30] MEDS ORDERED: Sodium Chloride 0.9% 2.5 ML Syringe FLUSH PRN (16:32)
[2021-11-30] MEDS ORDERED: Ketorolac 30 MG/ML SDV IVPUSH ONE (16:32)
[2021-11-30] MEDS ORDERED: Ondansetron 4 MG/2 ML SDV IVPUSH ONE (16:59)
[2021-11-30 17:28] LABS: CARBON DIOXIDE,CO2 23.8 mmol/L (21.0-32.0); POTASSIUM,K 3.3 mmol/L (3.5-5.1)
[2021-11-30] MEDS ORDERED: Iopamidol 755 MG/ML 500 ML Multipack Bottle IVPUSH STA (19:05)
== END 2021-11-30 19:55 | disposition home or self-care (01) ==
LOC: MERGE 15:09 → MW.ED 15:09
DX: R10.84 Generalized abdominal pain (principal); Z79.899 Other long term (current) drug therapy
CPT/HCPCS: 36415; 74177; 80053; 83690; 85025; 96361; 96374; 99284; J1885; J3490; J7030; Q9967; 99283

== ENCOUNTER 2022-01-22 06:40 | Day surgery (SDC) | payer OTHER ==
[2022-01-22] MEDS ORDERED: Propofol 200 MG/20 ML SDV ONE (07:30)
[2022-01-22] MEDS ORDERED: fentaNYL 100 MCG/2 ML SDV ONE (07:30)
[2022-01-22] MEDS ORDERED: Lactated Ringers 1,000 ML IV SCH (10:00)
== END 2022-01-22 08:58 | disposition home or self-care (01) ==
LOC: MW.SDS 06:40
PROVIDERS: ATTEND Surgery
DX: K62.5 Hemorrhage of anus and rectum (principal); F32.A Depression, unspecified; E11.9 Type 2 diabetes mellitus without complications; R45.851 Suicidal ideations; F41.9 Anxiety disorder, unspecified; Z98.890 Other specified postprocedural states; Z79.899 Other long term (current) drug therapy
CPT/HCPCS: 45380; J2704; J3010; J7120; 00811

== ENCOUNTER 2022-03-08 08:20 | Emergency (ER) | payer OTHER ==
[2022-03-08 09:29] LABS: CORONAVIRUS COVID-19 NAA NEGATIVE (NEGATIVE); INFLUENZA A NAA NEGATIVE (NEGATIVE); INFLUENZA B NAA NEGATIVE (NEGATIVE)
[2022-03-08] MEDS ORDERED: Ibuprofen 400 MG Tab PO ONE (09:33)
[2022-03-08] MEDS ORDERED: Acetaminophen 325 MG Tab PO ONE (09:33)
== END 2022-03-08 10:40 | disposition home or self-care (01) ==
LOC: MW.ED 08:20
DX: J06.9 Acute upper respiratory infection, unspecified (principal); F17.210 Nicotine dependence, cigarettes, uncomplicated; Z20.822 Contact with and (suspected) exposure to COVID-19
CPT/HCPCS: 0240U; 87634; 93005; 99283; A9270

== ENCOUNTER 2022-12-06 10:45 | Emergency (ER) | payer OTHER ==
[2022-12-06 11:48] LABS: CORONAVIRUS COVID-19 NAA NEGATIVE (NEGATIVE); INFLUENZA A NAA NEGATIVE (NEGATIVE); INFLUENZA B NAA NEGATIVE (NEGATIVE)
[2022-12-06] MEDS ORDERED: Acetaminophen 325 MG Tab PO ONE (12:03)
[2022-12-06] MEDS ORDERED: Albuterol 0.083% 2.5 MG/3 ML Neb Soln NEB ONE (12:03)
== END 2022-12-06 13:57 | disposition home or self-care (01) ==
LOC: MW.ED 10:45
DX: J40 Bronchitis, not specified as acute or chronic (principal); Z20.822 Contact with and (suspected) exposure to COVID-19
CPT/HCPCS: 0240U; 71045; 93005; 99285; A9270; 93010; 99283; J7620-GY